=== PATIENT | male | born 1970 | race Caucasian/White ===

== ENCOUNTER 2017-10-11 11:01 | Day surgery (SDC) | payer BC ==
[2017-10-11 11:31] LABS: #Monocytes 1.1 thou/uL (0.11-0.59); #Neutrophils 10.3 thou/uL (1.40-6.50); %Basophils 0.2 % (0.0-1.0); %Eosinophils 0.4 % (0.0-10.0); %Lymphocytes 8.2 % (21.0-51.0); %Monocytes 8.7 % (0.0-10.0); %Neutrophils 82.6 % (42.0-75.0); Hemoglobin 15.2 g/dL (14.0-18.0); Mean Corpuscular HGB CONC 33.3 g/dL (32.0-36.0); Mean Corpuscular Hemoglobin 30.3 pg (27.0-31.0); Mean Corpuscular Volume 91.1 fl (80.0-94.0); Mean Platelet Volume 8.5 fL (7.4-10.4); Platelet Count 172 thou/uL (130-400); RBC Distribution Width 12.4 % (11.5-14.5); White Blood Cell (WBC) Count 12.4 thou/uL (4.8-10.8)
[2017-10-11 11:57] LABS: ALT (SGPT) 24 U/L (8-55); AST (SGOT) 20 U/L (5-34); Albumin 4.3 g/dL (3.5-5.0); Alkaline Phosphatase 62 U/L (40-150); Anion Gap 14 mmol/L (10-20); BUN (Urea Nitrogen) 11 mg/dL (8.9-20.6); Bilirubin, Total 0.6 mg/dL (0.2-1.2); Calc. Creatinine Clearance 0 mL/min (70-130); Calcium 9.6 mg/dL (7.8-10.44); Carbon Dioxide 22 mmol/L (22-29); Chloride 100 mmol/L (98-107); Estimated GFR-MDRD Greater than 90; Globulin 3.8 g/dL (2.4-3.5); Glucose 88 mg/dL (70-105); Lipase 13 U/L (8-78); Protein, Total 8.1 g/dL (6.0-8.3); Sodium 132 mmol/L (136-145)
[2017-10-11] MEDS ORDERED: Ondansetron HCl/PF 4 MG/2 ML Vial ONE ×2 (12:44→13:16)
[2017-10-11] MEDS ORDERED: Morphine 2 MG/ML SYRINGE ONE (12:44)
--- NOTE | 2017-10-11 13:02 | CT ---
ABDOMEN AND PELVIC CT SCAN WITH IV CONTRAST: HISTORY: A 47-year-old male with right lower quadrant pain for 2 days. FINDINGS: There is some linear stranding in both lung bases, probably some subsegmental atelectasis. The liver , gallbladder, pancreas, spleen, adrenal glands, and kidneys are unremarkable. No renal calculus or acute obstruction. Marked abnormal fat stranding around the appendix with some thickening of the appendix and poor definition of the appendix ornelas, but no evidence for abscess or free intraperitone al air or evidence for free intraperitoneal fluid within the abdomen or pelvis. IMPRESSION: Evidence for acute appendicitis. Findings were discussed with Dr. Justin at 12:44 p.m. CODE CR POS: [facility]
[2017-10-11 13:12] LABS: Bilirubin Negative (Negative); Blood, Urine Negative (Negative); Clarity CLEAR (Clear); Glucose, Urine (Dipstick) Negative (Negative); Leukocyte Negative (Negative); Nitrite Negative (Negative); Protein, Urine (Dipstick) Negative (Neg-Trace)
[2017-10-11 13:13] LABS: Specific Gravity, Urine 1.035 (1.002-1.036)
[2017-10-11] MEDS ORDERED: MEROPENEM 1 GM/50 ML 1 GM in Premix Bag 1 BAG IVPB ONE (13:15)
[2017-10-11] MEDS ORDERED: Propofol 200 MG/20 ML VIAL ONE (13:16)
[2017-10-11] MEDS ORDERED: Glycopyrrolate 0.2 MG/ML 5 ML SYRINGE ONE (13:16)
[2017-10-11] MEDS ORDERED: Lidocaine 1% PF 5 ML VIAL ONE (13:16)
[2017-10-11] MEDS ORDERED: Succinylcholine Chloride 20 MG/ML 10 ml SYRINGE FS ONE (13:16)
[2017-10-11] MEDS ORDERED: PHENYLEPHRINE-NS 100 MCG/ML 10 ML SYRINGE ONE (13:16)
[2017-10-11] MEDS ORDERED: Dexamethasone 20 MG/5 ML VIAL ONE (13:16)
[2017-10-11] MEDS ORDERED: MEROPENEM 1 GM/50 ML 1 GM in Premix Bag 1 BAG IVPB SCH (13:30)
[2017-10-11] MEDS ORDERED: Ketorolac Tromethamine 30 MG/ML VIAL ONE (13:51)
--- NOTE | 2017-10-11 13:55 | HP ---
DATE OF ADMISSION: 10/11/2017 HISTORY OF PRESENT ILLNESS: A 47-year-old man presented to emergency department with a 3-d ay history of right lower quadrant abdominal pain. Pain is without radiation. The patient reports s ome nausea, but no emesis. He admits to fever, maximum temperature was 100.1 degrees Fahrenheit toda y. Last bowel movement was this morning. PAST MEDICAL HISTORY: Unremarkable. PAST SURGICAL HISTORY: Pertinent for some oral surgeries. SOCIAL HISTORY: Patient is and lives at home with his . 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 He admits to smoking 3 cigarettes every 3 weeks or so. He also admits to o ccasional intake of ethanol in moderate amounts. He denies any illicit drug abuse. FAMILY HISTORY: Notable for tobacco-related lung carcinoma in both grandparents. His grandfather also has prostatic carcinoma. He denies any family history of diabetes mellitus, hyp ertension, or heart disease. CURRENT MEDICATIONS: None. ALLERGIES: Patient denies any known drug allergies. REVIEW OF SYSTEMS: A 10-point review of systems essentially unremarkable except for as stated in pas t medical history and chief complaint. PHYSICAL EXAMINATION: GENERAL: This reveals a 47-year-old obese man, who is otherwise coherent and interactive and appears stated age. The patient is alert and oriented x3, appears to be in no significant acute distress at the time of my evaluation. HEENT EXAMINATION: Reveals normocephalic and atraumatic. Pupils are equal, round, reactive to light and accommodation. Extraocular muscles are intact bilaterally. No sclerae icterus is present. Ora l mucosa is pink and moist. No lesions are noted. NECK: Supple. No palpable lymphadenopathy or thyromegaly present. HEART: Reveals regular rate and rhythm. No murmurs or gallops auscultated. LUNGS: Clear to auscultation bilaterally. Breathing is regular and unlabored. ABDOMEN: Soft and obese. He has right lower quadrant tenderness at McBurney's. He has a positive R ovsing sign. Liver and spleen are nonpalpable below costal margins. EXTREMITIES: Reveal 2+ radial and pedal pulses bilaterally. No ankle edema is present. NEUROLOGICAL EXAMINATION: Reveals no focal deficits present. LABORATORY FINDINGS: Includes CBC with 12,400 white blood cells, hemoglobin 15.2, hematocrit is 45.6 , platelet count is 172,000. Metabolic profile: Sodium 132, potassium is 4.0, chloride is 100, bica rbonate 22, BUN 11, creatinine 0.85, glucose 88, total bilirubin 0.6, AST and ALT 20 and 24 respectiv laila. Alkaline phosphatase is 62. Serum lipase is normal at 13. Urinalysis essentially unremarkable . I have personally reviewed the CT scan of the abdomen and pelvis, which is remarkable for dilated thick-walled appendix with periappendiceal fat stranding. No free fluid or pneumoperitoneum is evide nt. IMPRESSION: Acute appendicitis. PLAN: Laparoscopic appendectomy. The above findings and plan have been discussed with the patient a nd his at bedside. I have advised him of the risk and benefits of the proposed surgery. Risks include, but not limited to bleeding, infection, injury to bowel and surrounding structures. The pat jude indicates understanding of this information and I have answered all his questions. The patient has granted consent for this admission and surgical intervention.
[2017-10-11] MEDS ORDERED: Bupivacaine/Epinephrine 0.25% 30 ML VIAL ONE (14:02)
[2017-10-11] MEDS ORDERED: Midazolam HCl 2 mg/2 ml Vial ONE (14:06)
[2017-10-11] MEDS ORDERED: Fentanyl 100 MCG/2 ML VIAL ONE ×2 (14:06→16:27)
[2017-10-11] MEDS ORDERED: ISOVUE-370 76%-LOCM 1 ML ONE (15:43)
[2017-10-11] MEDS ORDERED: Meperidine HCl/PF 25 MG/ML VIAL SLOW IVP PRN (15:51)
[2017-10-11] MEDS ORDERED: HYDROmorphone 2 MG/ML VIAL SLOW IVP PRN (15:51)
[2017-10-11] MEDS ORDERED: Promethazine HCl 25 MG/ML VIAL SLOW IVP PRN (15:51)
[2017-10-11] MEDS ORDERED: Morphine Sulfate 2 MG/ML SYRINGE SLOW IVP PRN (15:51)
[2017-10-11] MEDS ORDERED: traMADol HCl 50 MG TAB ONE (17:47)
--- NOTE | 2017-10-11 21:14 | OP ---
DATE OF OPERATION: 10/11/2017 PREOPERATIVE DIAGNOSIS: Acute appendicitis. POSTOPERATIVE DIAGNOSIS: Acute retrocecal appendicitis. SURGERY PERFORMED: Laparoscopic appendectomy. SURGEON: Abelardo Shirley DO ANESTHESIA: General endotracheal. ESTIMATED BLOOD LOSS: 20 mL FLUIDS GIVEN: 1000 mL crystalloids. SPONGE AND INSTRUMENT COUNT: Certified as correct x2. COMPLICATIONS: None apparent at the time of operation. INDICATIONS FOR PROCEDURE: This is a 47-year-old man, who presented with 3-day history of right lowe r quadrant abdominal pain. Clinical and radiographic examination was consistent with acute appendici tis for which patient was brought to the operating room for appendectomy. Findings are consistent with suppurative, but nonperforated retrocecal appendix. DESCRIPTION OF PROCEDURE: Informed consent obtained from the patient, who was brought to the operati ng room and placed in supine position. Following the general anesthesia, a Reddy catheter was insert ed and placed bedside drain. Abdomen is sterilely prepped and draped in the usual fashion. Skin bel ow the umbilicus was infiltrated with 0.25% Marcaine with epinephrine. A small curvilinear infraumbi lical incision is made using an 11 scalpel. Umbilical stalk was grasped with Ravi's and elevated. Veress needle was inserted through the incision and placed in the peritoneal cavity through which th e abdomen was insufflated with 3 liters of CO2 gas. Intraabdominal pressure was noted at 2 mmHg. Fo llowing abdominal insufflation, Veress needle was removed, 5 mm trocar was introduced using a Visipor t under laparoscopy. Laparoscopy confirmed proper placement of the port, no injuries to underlying s tructures. An additional laparoscopy reveals right lower quadrant completely encased by omental adhe sions. Under laparoscopy, a 5 mm suprapubic and 12 mm left lower quadrant ports were placed after th e overlying skin was infiltrated with 0.25% Marcaine with epinephrine and appropriate incisions made. The patient was placed in a Trendelenburg position, rotated to his left. I introduced Prestige gra sper through the left lower quadrant port site using this to bluntly take down omental adhesions. I then traced the terminal ileum to the ileocecal junction. I inspected a 2 feet length of the termi nal ileum, did not find any Meckel's. Once the cecum was identified, the lateral attachments to the cecum were mobilized medially and a retrocecal appendix is noted quite inflamed and thick walled. Th is was then grasped with an Endo Iram forceps which was introduced through the suprapubic port sit e and elevated. The mesoappendix was serially divided using LigaSure. Appendix was then divided at appendicocecal junction using Endo RAY with a blue load. Appendix was removed from the abdominal cav ity in piecemeal using an EndoCatch. Operative site was irrigated with saline, noting good hemostasi s. Finding no other pathology, laparoscopy was terminated. Fascia of the left lower quadrant port s ite was closed using 0 Vicryl suture and Endo closure device under laparoscopy. Abdomen was desuffla brittany. All ports and instruments were removed and accounted for. Skin incision was closed using 4-0 M onocryl suture in subcuticular fashion. Dermabond was applied over the incisions. The patient tianna ated the operation without any apparent complications and was returned to the recovery room in satisf actory condition.
== END 2017-10-11 19:12 | disposition home or self-care (01) ==
LOC: ERS 11:01 → SDC 12:00
PROVIDERS: ATTEND Surgery
PROC: 0DTJ4ZZ Resection of Appendix, Percutaneous Endoscopic Approach (ICD-10-PCS; principal; 2017-10-11)
DX: K35.80 Unspecified acute appendicitis (principal); F17.210 Nicotine dependence, cigarettes, uncomplicated
CPT/HCPCS: 36415; 74177; 80053; 81003; 83690; 85025; 88304; 96361; 96365; 96374; 96375; J1100; J1885; J2001; J2250; J2270; J2405; J2704; J3010

== ENCOUNTER 2019-07-06 12:02 | Emergency (ER) | payer BC ==
[2019-07-06] MEDS ORDERED: ISOVUE-370 76%-LOCM 1 ML ONE (13:09)
[2019-07-06] MEDS ORDERED: Diazepam 10 MG/2 ML SYRINGE ONE ×2 (13:34→14:13)
[2019-07-06] MEDS ORDERED: Ketorolac Tromethamine 30 MG/ML VIAL ONE (13:35)
[2019-07-06 14:16] LABS: #Eosinphils 0.2 thou/uL (0.0-0.7); #Lymphocytes 1.7 thou/uL (1.20-3.40); #Monocytes 0.5 thou/uL (0.11-0.59); #Neutrophils 7.3 thou/uL (1.40-6.50); %Basophils 0.4 % (0.0-1.0); %Eosinophils 1.9 % (0.0-10.0); %Lymphocytes 17.4 % (21.0-51.0); %Monocytes 5.4 % (0.0-10.0); %Neutrophils 74.9 % (42.0-75.0); Hemoglobin 15.7 g/dL (14.0-18.0); Mean Corpuscular HGB CONC 32.8 g/dL (32.0-36.0); Mean Corpuscular Hemoglobin 29.9 pg (27.0-31.0); Mean Corpuscular Volume 91.1 fL (78.0-98.0); Platelet Count 175 thou/uL (130-400); RBC Distribution Width 12.9 % (11.5-14.5); Red Blood Cell (RBC) Count 5.26 mill/uL (4.70-6.10); White Blood Cell (WBC) Count 9.8 thou/uL (4.8-10.8)
[2019-07-06 15:09] LABS: ALT (SGPT) 23 U/L (8-55); AST (SGOT) 21 U/L (5-34); Albumin 4.6 g/dL (3.5-5.0); Alkaline Phosphatase 71 U/L (40-110); Anion Gap 16 mmol/L (10-20); BUN (Urea Nitrogen) 10 mg/dL (8.9-20.6); Bilirubin, Total 0.4 mg/dL (0.2-1.2); Calc. Creatinine Clearance 0 mL/min (70-130); Calcium 9.5 mg/dL (7.8-10.44); Carbon Dioxide 20 mmol/L (22-29); Chloride 105 mmol/L (98-107); Estimated GFR-MDRD Greater than 90; Globulin 3.5 g/dL (2.4-3.5); Glucose 68 mg/dL (70-105); Potassium 4.2 mmol/L (3.5-5.1); Protein, Total 8.1 g/dL (6.0-8.3); Sodium 137 mmol/L (136-145)
--- NOTE | 2019-07-06 15:17 | CT ---
CT NECK SOFT TISSUES, WITH CONTRAST: CLINICAL INDICATION:Neck swelling, pain COMPARISON: No prior comparison imaging FINDINGS: Aerodigestive tract:Focal soft tissue prominence at the right aspect of the tongue. This mildly narro ws the oral pharyngeal airway. Mild prominence of lingual tonsil. Parotid gland: No intrinsic mass, or inflammation. Submandibular glands:No intrinsic mass, or inflammation. Soft tissue mass:Focal soft tissue prominence of the right aspect of the tongue, notably posteriorly. Lymph nodes: Scattered borderline-sized lymph nodes of each cervical chain. Thyroid gland:Normal. Incidental findings:None of significance. IMPRESSION: Focal soft tissue prominence of the oral cavity emanating from the right aspect of the tongue notably posteriorly. Underlying lesion is not excluded. Recommend correlation with direct visualization. Nonspecific borderline-sized bilateral cervical chain lymph nodes.
== END 2019-07-06 16:15 | disposition home or self-care (01) ==
LOC: ERS 12:02
DX: S16.1XXA Strain of muscle, fascia and tendon at neck level, initial encounter (principal); Z87.891 Personal history of nicotine dependence; Z79.899 Other long term (current) drug therapy; X58.XXXA Exposure to other specified factors, initial encounter
CPT/HCPCS: 36415; 70491; 80053; 85025; 87081; 87430; 96374; 96375; J1885; J3360; Q9966